=== PATIENT | female | born 1960 | race Caucasian/White ===

== ENCOUNTER 2019-04-15 17:19 | Inpatient (IN) ==
[2019-04-15] MEDS ORDERED: fentaNYL 100 MCG/2 ML VIAL IV ONE (17:40)
--- NOTE | 2019-04-15 18:09 | XRay Report ---
CLINICAL INFORMATION: fall COMPARISON: None. FINDINGS: On the axillary view, there is a probable impacted fracture of the subglenoid aspect of the lateral scapula. Mild diffuse osteoporosis noted. There is mild acromioclavicular degeneration noted. The glenohumeral joint is normal IMPRESSION: Suspect impacted nondisplaced fracture through the subglenoid region. Mild diffuse osteoporosis Mild acromioclavicular degeneration Interpreted and Authenticated by: Gerson Davila 04/15/19
--- NOTE | 2019-04-15 18:17 | Emergency Department Note ---
Fall HPI - General Chief Complaint: Fall Stated Complaint: fell hip pain and deformity Time Seen by Provider: 04/15/19 17:25 Source: patient, family Mode of arrival: EMS Limitations: no limitations - History of Present Illness HPI Narrative: 59-year-old female who slipped on the ice getting out of a pickup at [employer]. She has severe pain at her right collarbone and right hip. Her right hip is shortened. She got 100 mcg of fentanyl en route. She is feeling nauseous and refuses any more pain medicine - Related Data Home Medications Medication Instructions Recorded Confirmed Atorvastatin [Lipitor] 20 mg PO HS 04/15/19 04/15/19 Losartan Potassium 25 mg PO DAILY 04/15/19 04/15/19 Review of Systems All systems ED: reviewed and negative except as stated. Fall PMH - Past Medical History Attestation: Yes: The following information was validated with the patient. Medical history: Reports: hyperlipidemia, hypertension Surgical history ED: Reports: orthopedic, other (Knee on the left) - Social History smoking status: Current every day smoker Physical Exam Some distress secondary to pain. Normocephalic atraumatic. Conjunctive are clear sclerae white nonicteric. No nasal discharge or congestion. Oropharynx pink and moist. Heart is regular rhythm but mildly tachycardic on exam. Lungs are clear to auscultation bilaterally without wheezes rales rhonchi or respirat ory distress. Abdomen is soft nontender nondistended. Her right leg is rotated outward at the hip and shortened consistent with hip fracture. She is tender in the right groin. Her right distal one third of the collarbone is tender but she is able to move her right arm normally to manipulate a phone get things from her purse etc. she is alert oriented able answer questions appropriately. Limitations: no limitations Course Vital Signs Temperature 97.8 F 04/15/19 17:21 Pulse Rate 79 04/15/19 17:21 Respiratory Rate 16 04/15/19 17:21 Blood Pressure 112/76 04/15/19 17:21 Pulse Oximetry (%) 98 04/15/19 17:21 Temperature 97.8 F 04/15/19 17:21 Pulse Rate 65 04/15/19 18:05 Respiratory Rate 16 04/15/19 17:21 Blood Pressure 146/80 01/14/20 19:01 Pulse Oximetry (%) 98 04/15/19 18:05 Fall - Lab Data Lab results reviewed: Yes I reviewed the patient's lab results. Result diagrams: 04/15/19 18:15 04/15/19 18:14 Lab Results 04/15/19 04/15/19 Range/Units 18:14 18:15 WBC 16.1 H (4.50-11.00) K/mcL RBC 4.34 (3.59-5.38) M/mcL Hgb 13.1 (11.2-15.7) g/dL Hct 39.4 (34.1-44.9) % MCV 90.8 (80.0-100.0) fL MCH 30.2 (26.0-34.0) pg MCHC 33.2 (31.0-36.0) g/dL RDW 13.8 (11.5-14.5) % Plt Count 268 (140-440) K/mcL MPV 9.7 (7.4-10.4) fL Gran % 70.7 (38.0-78.0) % Lymph % (Auto) 22.0 (15.5-49.0) % Hays % (Auto) 5.8 (1.0-12.0) % Eos % (Auto) 1.1 (0.0-7.0) % Baso % (Auto) 0.4 (0.0-2.0) % Gran # 11.37 H (1.80-8.00) K/mcL Lymph # (Auto) 3.55 (1.50-4.80) K/mcL [place] # (Auto) 0.94 H (0.10-0.90) K/mcL Eos # (Auto) 0.17 (0.00-0.70) K/mcL Baso # (Auto) 0.07 (0.00-0.30) K/mcL Sodium 137 (133-145) mmol/L Potassium 3.4 (3.3-5.1) mmol/L Chloride 101 (96-108) mmol/L Carbon Dioxide 20 L (22-30) mmol/L Anion Gap 16.0 (8-16) BUN 11 (8-23) mg/dl Creatinine 0.6 (0.6-1.1) mg/dl GFR Calculation 98 Glucose 146 H (70-105) mg/dL Calcium 9.4 (8.6-10.4) mg/dl Total Bilirubin 0.4 (0.0-1.0) mg/dL AST 13 (0-37) U/l ALT 10 (0-40) U/l Alkaline Phosphatase 88 (39-117) U/L Total Protein 6.5 (5.9-8.4) gm/dL Albumin 4.0 (3.2-5.2) gm/dL Globulin 2.5 (2.2-3.7) gm/dL Albumin/Globulin Ratio 1.6 (1.0-2.3) - Radiology Data Radiology results reviewed: Yes I reviewed the patient's radiology results. X-ray of the right shoulder does not show a fracture dislocation . X-ray of the right hip shows a displaced intertrochanteric femur fracture Chest x-ray is read as normal - EKG Data EKG attestation: Yes I reviewed and interpreted this EKG., Yes There are no EKG findings of acute coronary syndrome, Yes This EKG will be read by cementing machine operator Disposition Pt seen by COMMUNICATIONS AGENT/PA only: No Clinical Impression: Femur fracture, right Qualifiers: Encounter type: initial encounter Femur location: intertrochanteric Fracture type: closed Fracture alignment: displaced Qualified Code(s): S72.141A - Displaced intertrochanteric fracture of right femur, initial encounter for closed fracture Right shoulder injury Qualifiers: Encounter type: initial encounter Qualified Code(s): S49.91XA - Unspecified injury of right shoulder and upper arm, initial encounter Summary: Patient is given additional dose of Zofran for nausea here. Discussed results with patient. Will call orthopedics after discussion with charge nurse Discussed case with Dr. Chandler the orthopedist application integration engineer. He came in to see the patient and plans on surgery in the morning. Patient was discussed with Dr. Aquino, hospitalist. He will admit the patient Patient changed her mind about pain medicine and we ended up giving her 100 mcg more of fentanyl. She continued to have nausea so we gave her another round of Zofran. This did not hold off for pain or nausea so we gave her Compazine 10 mg along with Robaxin and Toradol. Her pain continued to be difficult to control so we gave her Dilaudid Disposition: Xfer As Inpt ([facility]) Condition: Fair Referrals: Karol Pedro ARNP [Primary Care Provider] -
--- NOTE | 2019-04-15 18:17 | XRay Report ---
CLINICAL INFORMATION: Trauma COMPARISON: None. FINDINGS: Heart size, mediastinum and pulmonary vessels are normal. Lungs are clear. No effusions. IMPRESSION: Negative Interpreted and Authenticated by: Gerson Davila 04/15/19
--- NOTE | 2019-04-15 18:18 | XRay Report ---
CLINICAL INFORMATION: fall COMPARISON: None. FINDINGS: A severely comminuted intertrochanteric fracture of the right hip is appreciated. The femoral diaphysis is displaced greater than 1 cm anteriorly and medially. There is mild impaction and angulation deformity. Moderate degenerative change seen in both SI joints. Soft tissue swelling seen of the fracture site IMPRESSION: Comminuted, angulated and displaced intertrochanteric fracture right hip Interpreted and Authenticated by: Gerson Davila 04/15/19
[2019-04-15] MEDS ORDERED: ONDANSETRON 4 MG/2 ML VIAL IV ONE (18:27)
[2019-04-15] MEDS ORDERED: METHOCARBAMOL 1,000 MG/10 ML VIAL IV ONE (18:39)
[2019-04-15] MEDS ORDERED: KETOROLAC 30 MG/ML VIAL IV ONE (18:39)
[2019-04-15] MEDS ORDERED: PROCHLORPERAZINE 10 MG/2 ML VIAL IV ONE (19:04)
[2019-04-15 19:05] LABS: Basophils # (Auto) 0.07 K/mcL (0.00-0.30); Basophils % (Auto) 0.4 % (0.0-2.0); Eosinophils # (Auto) 0.17 K/mcL (0.00-0.70); Eosinophils % (Auto) 1.1 % (0.0-7.0); Granulocytes % (Auto) 70.7 % (38.0-78.0); Hematocrit 39.4 % (34.1-44.9); Hemoglobin 13.1 g/dL (11.2-15.7); Lymphocytes # (Auto) 3.55 K/mcL (1.50-4.80); Mean Cell Volume 90.8 fL (80.0-100.0); Mean Corpuscular HGB Conc 33.2 g/dL (31.0-36.0); Mean Platelet Volume 9.7 fL (7.4-10.4); Monocytes # (Auto) 0.94 K/mcL (0.10-0.90); Monocytes % (Auto) 5.8 % (1.0-12.0); Platelet Count 268 K/mcL (140-440); RBC 4.34 M/mcL (3.59-5.38); Red Cell Distribution Width 13.8 % (11.5-14.5); WBC 16.1 K/mcL (4.50-11.00)
--- NOTE | 2019-04-15 19:15 | Internal Med History&Physical ---
Medical - H&P: [facility] Patient information: Note initiated : 04/15/19 at 7:14 pm Service Date, if different from initiated Date: [] Patient: Shira Alarcon a 59 y/o F admitted on for fell hip pain and deformity. Chief Complaint: [] Chief complaint: Fall/right hip pain History of present illness: Ms. Alarcon is a 59 year old F who presented to the ER after she slipped on black ice outside of restaurant sustaining injury to her right hip. Initial work-up was consistent with right hip fracture. Orthopedics was consulted and hospitalist service was requested for admission to facilitate operative intervention. At the time evaluation patient is alert and oriented. She is accompanied with her . She was able to answer most the question. She denies any precipitating events and attributes fall to slipping off black ice. She denies loss of consciousness, chest pain, lightheadedness or dizziness. She denies recent hospitalization. She further denies history of cardiac stents/heart failure/diabetes or kidney issues. She denies prior strokes. She endorses to 6 out of 10 pain despite opioids administered in the ER. She actively smokes and would like a nicotine patch. She denies being on blood thinners. Review of systems A 10 point review system was performed and is negative except was cussed above Medical - H&P: PMH Medical history: Hyperlipidemia Hypertension Tobacco dependence Pertinent family history: Nonsignificant Social history: Half pack a day smoker No alcoholism Works as a caregiver at the facility Medical - H&P: Meds Home Medications Medication Instructions Recorded Confirmed Type Atorvastatin [Lipitor] 20 mg PO HS 04/15/19 04/15/19 History Losartan Potassium 25 mg PO DAILY 04/15/19 04/15/19 History Medical - H&P: Exam - Constitutional Vitals: Temp Pulse Resp BP Pulse Ox 97.8 F 65 16 146/80 98 04/15/19 17:21 04/15/19 18:05 04/15/19 17:21 04/15/19 19:01 04/15/19 18:05 General appearance: moderate distress Exam: Alert oriented Head normocephalic Oral cavity dry No ear nose discharge Neck no lymphadenopathy S1-S2 regular rhythm no murmur Diminished breath sounds bases Abdomen soft nontender nondistended Right lower extremity externally rotated and shortened No sinus clubbing or joint swelling Skin no suspicious lesion Psych alert cooperative Neuro nonfocal Medical - H&P: Reslt - Labs CBC & Chem 7: 04/15/19 18:15 04/15/19 18:14 Labs: Short CBC 04/15/19 Range/Units 18:15 WBC 16.1 H (4.50-11.00) K/mcL Hgb 13.1 (11.2-15.7) g/dL Hct 39.4 (34.1-44.9) % Plt Count 268 (140-440) K/mcL Medical - H&P: A/P (1) Femur fracture, right Current visit: Yes Status: Acute * Right hip fracture-orthopedic consulted . Patient will undergo operative intervention in a.m. Keep n.p.o. after midnight * Pain management on as needed opioids/Tylenol * Preoperative risk evaluation-based on RCRI [place] heart association risk stratification patient would fall under high risk category due to surgery specific risk however patient has a good functional baseline and does not carry history of CVA/CAD/renal failure or insulin-dependent diabetes. She would be a great candidate for postoperative rehab. Risk may include intraoperative and immediate postoperative ACS/CVA, however there are no modifiable risk factors. I recommend maintaining a map greater than 70 during intraoperative phase. Furthermore surgery and anesthesia specific risks will be addressed by individual care providers. Patient understands the risk going into surgery. * History of hypertension continue ARB * Hyperlipidemia continue statin * Tobacco dependence continue current patch * Prophylaxis heparin * Full code Plan * Inpatient admission * Pain management * Keep n.p.o. after midnight * Pre-existing medical condition management as above * PT OT/nutrition support * review postop
[2019-04-15] MEDS: HYDROmorphone 2 MG/ML VIAL IV PRN ×3 (19:17→20:37)
[2019-04-15] MEDS ORDERED: DIAZEPAM 10 MG/2 ML SYRINGE IV ONE ×2 (19:19→22:40)
[2019-04-15] MEDS ORDERED: DIAZEPAM 10 MG/2 ML SYRINGE IV PRN (19:21)
[2019-04-15 19:24] LABS: ALT/SGPT 10 U/l (0-40); AST/SGOT 13 U/l (0-37); Albumin/Globulin Ratio 1.6 (1.0-2.3); Alkaline Phosphatase 88 U/L (39-117); Bilirubin,Total 0.4 mg/dL (0.0-1.0); Blood Urea Nitrogen 11 mg/dl (8-23); Calcium 9.4 mg/dl (8.6-10.4); Carbon Dioxide 20 mmol/L (22-30); Chloride 101 mmol/L (96-108); Globulin 2.5 gm/dL (2.2-3.7); Glomerular Filtration Rate 98; Glucose 146 mg/dL (70-105)
[2019-04-15] MEDS ORDERED: NICOTINE 14 MG PATCH TOPICAL ONE (21:36)
[2019-04-15] MEDS: 0.9 % SODIUM CHLORIDE 10 ML SYRINGE IV SCH (22:30)
[2019-04-15] MEDS ORDERED: BISACODYL 10 MG SUPP.RECT PR PRN (22:40)
[2019-04-15] MEDS ORDERED: ACETAMINOPHEN 650 MG/65 ML BOTTLE IV PRN (22:40)
[2019-04-15] MEDS ORDERED: ONDANSETRON 4 MG ODT TABLET SL PRN (22:40)
[2019-04-15] MEDS ORDERED: ATORVASTATIN 20 MG TABLET PO SCH (22:40)
[2019-04-15] MEDS ORDERED: POLYETHYLENE GLYCOL 3350 17 GM PACKET PO PRN (22:40)
[2019-04-15] MEDS ORDERED: 0.9 % SODIUM CHLORIDE 1,000 ML IV SCH ×2 (22:40→22:45)
[2019-04-15] MEDS ORDERED: HYDROmorphone 2 MG/ML VIAL IV PRN (22:40)
[2019-04-15] MEDS ORDERED: ONDANSETRON 4 MG/2 ML VIAL IV PRN (22:40)
[2019-04-15] MEDS ORDERED: MELATONIN 3 MG TABLET PO PRN (22:40)
[2019-04-15] MEDS ORDERED: MAGNESIUM SULFATE 2 GM/50 ML BAG IV PRN (22:40)
[2019-04-15] MEDS ORDERED: IPRATROPIUM/ALBUTEROL 3 ML AMPUL.NEB NEB PRN (22:40)
[2019-04-15] MEDS ORDERED: ACETAMINOPHEN 325 MG TABLET PO PRN (22:40)
[2019-04-15] MEDS ORDERED: SENNOSIDES/DOCUSATE SODIUM 1 TAB TABLET PO SCH (22:40)
[2019-04-15] MEDS ORDERED: POTASSIUM CHLORIDE 20 MEQ PACKET PO PRN (22:40)
[2019-04-15] MEDS ORDERED: DIAZEPAM 10 MG/2 ML SYRINGE ONE (22:50)
[2019-04-15] MEDS ORDERED: ONDANSETRON 4 MG/2 ML VIAL ONE (22:57)
[2019-04-15] MEDS: HEPARIN 5,000 UNIT/ML VIAL SQ SCH (23:15)
[2019-04-15] MEDS: DOCUSATE SODIUM 100 MG CAPSULE PO SCH (23:16)
[2019-04-16 00:22] LABS: Appearance,Urine CLEAR; Bacteria,Urine 0 /hpf (0); Bilirubin,Urine NEG (NEG); Color,Urine YELLOW; Culture Indicated,Urine NO; Glucose,Urine (UA) NEGATIVE (NEG); Ketones,Urine 80 mg/dL (NEG); Leukocyte Esterase,Urine NEG /uL (NEG); Mucus,Urine MANY /hpf (0); Nitrate,Urine NEG (NEG); Protein,Urine NEG (NEG); Specific Gravity,Urine 1.026 (1.000-1.035); Urine Blood 0.03 mg/dL (<0.03); Urine RBC 6 /hpf (0-1); Urine Squamous Epithelial Cell 1 /hpf (0-4); Urine WBC 2 /hpf (0-4); Urobilinogen,Urine NEG (NEG)
[2019-04-16] MEDS ORDERED: DIAZEPAM 10 MG/2 ML SYRINGE ONE (01:40)
[2019-04-16] MEDS: DIAZEPAM 10 MG/2 ML SYRINGE IV PRN ×3 (01:42→10:33)
[2019-04-16] MEDS: 0.9 % SODIUM CHLORIDE 10 ML SYRINGE IV SCH ×3 (05:30→22:58)
--- NOTE | 2019-04-16 07:42 | Consultation ---
DATE OF CONSULTATION: 04/15/2019 CHIEF COMPLAINT: Right hip pain. HISTORY OF PRESENT ILLNESS: The patient sustained a slip and fall on the ice today as she was heading into the [facility]. She had immediate pain and was unable to bear weight. She was transferred to the hospital emergency room here at [facility] and radiographs have demonstrated a comminuted fracture of the intertrochanteric region, right hip. She also has pain in and about the right shoulder. Radiographs did not clearly demonstrate a fracture in and about the right shoulder, but she clearly does have a comminuted intertrochanteric fracture of the right hip. PAST MEDICAL HISTORY: Hypertension, hypercholesterolemia. PAST SURGICAL HISTORY: Noncontributory, although she apparently did have a previous left knee procedure. SOCIAL HISTORY: She is a smoker. REVIEW OF SYSTEMS: She has been healthy recently and the balance of 10-point review of systems is negative. PHYSICAL EXAMINATION: GENERAL: She is awake and alert. She is in no acute distress, although does seem to have a significant amount of pain. HEENT: Head normocephalic, atraumatic. Eyes: PERRLA. Conjunctivae clear. ENT within normal limits. NECK: Supple without pain on range of motion. HEART: Regular. LUNGS: Clear. ABDOMEN: Benign. EXTREMITIES: Right lower extremity: Shortened and malrotated. She seems to be without gross neurovascular deficit. Right shoulder: She has some pain anteriorly over the mid clavicular region but no deformity, no false motion. IMAGING STUDIES: Radiographs demonstrate a comminuted fracture of the intertrochanteric right hip. IMPRESSION: Right intertrochanteric hip fracture. PLAN: We will proceed with a reduction and internal fixation. This will be done tomorrow. I have discussed risks, complications and limitations with the patient and she wished to proceed. GDWillard:serena Job ID: [id number] Doc ID: [id number] Eze Chandler MD
[2019-04-16 08:04] LABS: Hematocrit 36.8 % (34.1-44.9); Hemoglobin 11.8 g/dL (11.2-15.7); Mean Cell Volume 93.9 fL (80.0-100.0); Mean Corpuscular HGB Conc 32.1 g/dL (31.0-36.0); Mean Platelet Volume 10.2 fL (7.4-10.4); Platelet Count 237 K/mcL (140-440); RBC 3.92 M/mcL (3.59-5.38)
[2019-04-16 08:32] LABS: ALT/SGPT 10 U/l (0-40); AST/SGOT 12 U/l (0-37); Albumin 3.7 gm/dL (3.2-5.2); Albumin/Globulin Ratio 1.8 (1.0-2.3); Alkaline Phosphatase 80 U/L (39-117); Bilirubin,Direct < 0.2 mg/dL (0.0-0.3); Bilirubin,Total 0.4 mg/dL (0.0-1.0); Blood Urea Nitrogen 9 mg/dl (8-23); Calcium 8.9 mg/dl (8.6-10.4); Carbon Dioxide 22 mmol/L (22-30); Chloride 105 mmol/L (96-108); Globulin 2.1 gm/dL (2.2-3.7); Glomerular Filtration Rate 104; Glucose 109 mg/dL (70-105); Lactate Dehydrogenase 169 U/L (94-250); Phosphorous 3.8 mg/dL (2.7-4.5); Triglycerides 71 mg/dl (<150); Uric Acid 3.2 mg/dL (2.5-8.0)
[2019-04-16] MEDS ORDERED: LOSARTAN 25 MG TABLET PO SCH (09:00)
[2019-04-16] MEDS ORDERED: MULTIVIT,THER IRON,CA,FA & MIN 1 TABLET PO SCH (09:00)
[2019-04-16 09:22] LABS: Band Neutrophils % 3 % (0-10); Eosinophils % (Manual) 6 % (0-7); Hypochromasia 1+ (NONE SEEN); Lymphocytes % 17 % (15-49); Monocytes % (Manual) 4 % (1-12); Platelet Estimate NORMAL (NORMAL); RBC Morphology ABNORM (NORMAL); Segmented Neutrophils % 70 % (38-78)
--- NOTE | 2019-04-16 11:07 | Internal Med Progress Note ---
Medical - PN: Subj Patient information: Note initiated : 04/16/19 at 11:04 am Service Date, if different from initiated Date: [] Patient: Shira Alarcon a 59 y/o F admitted on 04/15/19 for fell hip pain and deformity. Chief Complaint: [] Interval history: Ms. Alarcon is a 59 year old F who presented to the ER after she slipped on black ice outside of restaurant sustaining injury to her right hip. Initial work-up was consistent with right hip fracture. Orthopedics was consulted and hospitalist service was requested for admission to facilitate operative intervention. At the time evaluation patient is alert and oriented. She is accompanied with her . She was able to answer most the question. She denies any precipitating events and attributes fall to slipping off black ice. She denies loss of consciousness, chest pain, lightheadedness or dizziness. She denies recent hospitalization. She further denies history of cardiac stents/heart failure/diabetes or kidney issues. She denies prior strokes. She endorses to 6 out of 10 pain despite opioids administered in the ER. She actively smokes and would like a nicotine patch. She denies being on blood thinners. 04/16-patient seen this morning. Await surgical intervention. No overnight events except for intermittent spasm with fracture site. Will review postop. White count 10,000. - Constitutional Vitals: Vital Signs Temp Pulse Resp BP Pulse Ox 98.8 F 70 18 167/68 97 04/16/19 07:02 04/16/19 07:25 04/16/19 07:02 04/16/19 07:02 04/16/19 07:02 Period Temp Pulse Resp BP Sys/Jaquez Pulse Ox Last 24 Hr 97.5 F-98.8 F 64-95 16-20 112-167/62-90 93-98 Intake and Output 04/15/19 04/16/19 04/16/19 21:59 05:59 13:59 Intake Total 207 Output Total 450 Balance -243 Weight 157 lb 158 lb Intake & Output: Intake & Output 04/15/19 04/16/19 04/16/19 21:59 05:59 13:59 Intake Total 207 Output Total 450 Balance -243 Weight 157 lb 158 lb Intake: IV 57 Sodium Chloride 0.9% 1,000 ml @ 57 20 mls/hr IV .Q24H MIKE Rx#: [id number] Oral 150 Output: Void Amount 450 Other: Urine Appearance Clear Uretheral (Oliveros) Clear Urine Color Light Leydi Uretheral (Oliveros) Dark Yellow Urine Odor Strong General appearance: no acute distress Exam: Alert oriented Minimal discomfort Nonlabored breathing Medical - PN: Obj Da - Labs CBC & Chem 7: 04/17/19 06:01 04/16/19 05:54 Labs: Abnormal Lab Results 04/16/19 04/16/19 04/15/19 05:54 05:54 22:11 WBC Gran # [place] # (Auto) RBC Morphology Abnorm A Hypochromasia 1+ A Carbon Dioxide Creatinine 0.5 L Glucose 109 H Total Protein 5.8 L Globulin 2.1 L Urine Ketones 80 A Urine Occult Blood 0.03 A Urine RBC 6 H Urine Mucus Many A 04/15/19 04/15/19 18:15 18:14 WBC 16.1 H Gran # 11.37 H [place] # (Auto) 0.94 H RBC Morphology Hypochromasia Carbon Dioxide 20 L Creatinine Glucose 146 H Total Protein Globulin Urine Ketones Urine Occult Blood Urine RBC Urine Mucus Meds: Medications Acetaminophen (Tylenol) 650 mg PO Q4-6HP PRN; Protocol PRN Reason: Per Pain Protocol/Fever > 101 Albuterol/Ipratropium (Duoneb) 3 ml NEB Q4HP PRN PRN Reason: Shortness Of Breath Atorvastatin Calcium (Lipitor) 20 mg PO HS [facility] Last Admin: 04/15/19 23:15 Dose: Not Given Documented by: Bisacodyl (Dulcolax) 10 mg IA Q2-3DAYS PRN PRN Reason: Constipation Diazepam (Valium) 2 mg IV Q1-2HP PRN PRN Reason: Spasms Last Admin: 04/16/19 10:33 Dose: 2 mg Documented by: Docusate Sodium (Colace) 100 mg PO BID [facility] Last Admin: 04/15/19 23:16 Dose: Not Given Documented by: Heparin Sodium (Porcine) (Heparin) 5,000 unit SQ Q12 [facility] Last Admin: 04/15/19 23:15 Dose: Not Given Documented by: Hydromorphone HCl (Dilaudid) 0 mg IV Q4HP PRN; Protocol PRN Reason: Per Pain Protocol Sodium Chloride (Sodium Chloride 0.9%) 1,000 mls @ 20 mls/hr IV .Q24H [facility] Last Infusion: 04/15/19 22:20 Dose: 0 mls/hr Documented by: Sodium Chloride (Sodium Chloride 0.9%) 1,000 mls @ 50 mls/hr IV .Q20H [facility] Stop: 04/18/19 10:39 Last Admin: 04/15/19 23:00 Dose: 50 mls/hr Documented by: Acetaminophen (Ofirmev) 650 mg in 65 mls @ 130 mls/hr IV Q6HP PRN; Protocol PRN Reason: Per Pain Protocol/Fever > 101 Magnesium Sulfate (Magnesium Sulfate) 2 gm in 50 mls @ 50 mls/hr IV UD PRN PRN Reason: MG = or < 1.7 Iron Carb/Multivit/Rhodhiss/Folic Acid (Multivitamin W/Minerals) 1 tab PO DAILY [facility] Losartan Potassium (Cozaar) 25 mg PO DAILY [facility] Melatonin (Melatonin 3mg Tablet) 3 mg PO HSP PRN PRN Reason: Insomnia Ondansetron HCl (Zofran Odt) 4 mg SL Q4-6HP PRN; Protocol PRN Reason: Nausea And Vomiting Ondansetron HCl (Zofran) 4 mg IV Q4-6HP PRN; Protocol PRN Reason: Nausea And Vomiting Last Admin: 04/15/19 22:59 Dose: 4 mg Documented by: Polyethylene Glycol (Miralax) 17 gm PO DAILYP PRN PRN Reason: Constipation Potassium Chloride (Klor-Con) 40 meq PO DAILYP PRN PRN Reason: K+ < 3.5 Senna/Docusate Sodium (Senna Plus Tablet) 1 tab PO HS [facility] Last Admin: 04/15/19 23:00 Dose: Not Given Documented by: Sodium Chloride (Saline Flush) 10 ml IV Q8 [facility] Last Admin: 04/16/19 05:30 Dose: Not Given Documented by: Medical - PN: A/P - Time Spent With Patient Total time spent is greater than 50% in coordination of care (as documented) at patient's floor/unit and/or counseling patient: 15 - 24 minutes (1) Femur fracture, right Status: Acute Assessment and plan: * Right hip fracture-operative intervention today. Continue n.p.o. * Pain management continue as needed opioids/Tylenol * Preoperative risk evaluation-based on RCRI [place] heart association risk stratification patient would fall under high risk category due to surgery specific risk however patient has a good functional baseline and does not carry history of CVA/CAD/renal failure or insulin-dependent diabetes. She would be a great candidate for postoperative rehab. Risk may include intraoperative and immediate postoperative ACS/CVA, however there are no modifiable risk factors at this time. I recommend maintaining a map greater than 70 during intraoperative phase. Furthermore surgery and anesthesia specific risks will be addressed by individual care providers. Patient understands the risk going into surgery. * History of hypertension continue ARB * Hyperlipidemia continue statin * Tobacco dependence continue current patch * Prophylaxis heparin * Full code Plan * Review postop * Continue pre-existing medical condition management as above * PT OT/nutrition support Current Visit: Yes Medical - PN: Qual - VTE Deep Vein Thrombosis/Pulmonary Embolism Present on Admission: No
[2019-04-16] MEDS ORDERED: KETAMINE 100 MG/ML ML IV ONE (13:00)
[2019-04-16] MEDS ORDERED: GLYCOPYRROLATE 0.2 MG/ML VIAL IV ONE (13:00)
[2019-04-16] MEDS ORDERED: ONDANSETRON 4 MG/2 ML VIAL IV ONE (13:00)
[2019-04-16] MEDS ORDERED: PROPOFOL 200 MG/20 ML VIAL IV ONE (13:00)
[2019-04-16] MEDS ORDERED: ceFAZolin 2 GM in DEXTROSE 5% IN WATER 50 ML IV SCH (13:00)
[2019-04-16] MEDS ORDERED: DEXAMETHASONE 10 MG/ML VIAL IV ONE (13:00)
[2019-04-16] MEDS ORDERED: fentaNYL 100 MCG/2 ML VIAL IV ONE (13:00)
[2019-04-16] MEDS ORDERED: LIDOCAINE HCL/PF 100 MG/5 ML SYRINGE IV ONE (13:00)
[2019-04-16] MEDS ORDERED: HYDROmorphone 2 MG/ML VIAL IV ONE (13:00)
[2019-04-16] MEDS: DOCUSATE SODIUM 100 MG CAPSULE PO SCH ×2 (13:15→21:00)
[2019-04-16] MEDS: HEPARIN 5,000 UNIT/ML VIAL SQ SCH (13:15)
[2019-04-16] MEDS ORDERED: BENZOCAINE/MENTHOL 1 LOZENGE PO PRN (13:35)
[2019-04-16] MEDS ORDERED: fentaNYL 100 MCG/2 ML VIAL IV PRN (13:35)
[2019-04-16] MEDS ORDERED: FLUMAZENIL 0.1 MG/ML ML IV PRN (13:35)
[2019-04-16] MEDS ORDERED: LACTATED RINGERS 250 ML IV PRN (13:35)
[2019-04-16] MEDS ORDERED: METOPROLOL TARTRATE 5 MG/5 ML VIAL IV PRN (13:35)
[2019-04-16] MEDS ORDERED: METHOCARBAMOL 1,000 MG/10 ML VIAL IV PRN (13:35)
[2019-04-16] MEDS ORDERED: IPRATROPIUM/ALBUTEROL 3 ML AMPUL.NEB NEB PRN ×2 (13:35→17:09)
[2019-04-16] MEDS ORDERED: NALOXONE HCL 0.4 MG/ML VIAL IV PRN (13:35)
[2019-04-16] MEDS ORDERED: LABETALOL 5 MG/ML ML IV PRN (13:35)
[2019-04-16] MEDS ORDERED: LACTATED RINGERS 1,000 ML IV SCH (13:45)
--- NOTE | 2019-04-16 14:12 | Brief Operative Note ---
Date of procedure: 04/16/19 Pre-op diagnosis: R intertrochanteric hip fracture Post-op diagnosis: same Procedure: ORIF gamma Grafts/Implants: Yes (gamma) Anesthesia: GETA Complications: none Surgeon: Eze Chandler Certified Medical Technician: Mireya Logan Estimated blood loss (cc): 100 Specimens Removed/Pathology: none sent Condition: stable Disposition: PACU
[2019-04-16] MEDS ORDERED: ONDANSETRON 4 MG ODT TABLET SL PRN (17:09)
[2019-04-16] MEDS ORDERED: HYDROmorphone 2 MG/ML VIAL IV PRN (17:09)
[2019-04-16] MEDS ORDERED: ACETAMINOPHEN 325 MG TABLET PO PRN (17:09)
[2019-04-16] MEDS ORDERED: BISACODYL 10 MG SUPP.RECT PR PRN (17:09)
[2019-04-16] MEDS ORDERED: ONDANSETRON 4 MG/2 ML VIAL IV PRN (17:09)
[2019-04-16] MEDS ORDERED: MAGNESIUM SULFATE 2 GM/50 ML BAG IV PRN (17:09)
[2019-04-16] MEDS ORDERED: POLYETHYLENE GLYCOL 3350 17 GM PACKET PO PRN (17:09)
[2019-04-16] MEDS ORDERED: POTASSIUM CHLORIDE 20 MEQ PACKET PO PRN (17:09)
[2019-04-16] MEDS ORDERED: 0.9 % SODIUM CHLORIDE 1,000 ML IV SCH (17:09)
[2019-04-16] MEDS ORDERED: DIAZEPAM 10 MG/2 ML SYRINGE IV PRN (17:09)
[2019-04-16] MEDS: 0.9 % SODIUM CHLORIDE 1,000 ML IV SCH (18:15)
--- NOTE | 2019-04-16 18:35 | XRay Report ---
CLINICAL INFORMATION: Comminuted intertrochanteric fracture right hip COMPARISON: None. FINDINGS: Multiple digital images from the OR show comminuted intertrochanteric /subtrochanteric fracture to be reduced anatomic alignment and transfixed by gamma nail. IMPRESSION: ORIF intertrochanteric fracture anatomic alignment Interpreted and Authenticated by: Gerson Davila 04/16/19
[2019-04-16] MEDS: ceFAZolin 1 GM VIAL IV SCH (20:59)
[2019-04-16] MEDS ORDERED: HEPARIN 5,000 UNIT/ML VIAL SQ SCH (21:00)
[2019-04-16] MEDS: SENNOSIDES/DOCUSATE SODIUM 1 TAB TABLET PO SCH (21:00)
[2019-04-16] MEDS: ATORVASTATIN 20 MG TABLET PO SCH (21:00)
[2019-04-16] MEDS: MELATONIN 3 MG TABLET PO PRN (23:00)
[2019-04-17] MEDS: 0.9 % SODIUM CHLORIDE 10 ML SYRINGE IV SCH ×3 (05:32→21:15)
[2019-04-17] MEDS: ceFAZolin 1 GM VIAL IV SCH (05:32)
--- NOTE | 2019-04-17 07:23 | Orthopedic Progress Note ---
Subjective Patient information: Note initiated : 04/17/19 at 7:21 am Service Date, if different from initiated Date: [] Patient: Shira Alarcon 59 y/o F admitted on 04/15/19 for fell hip pain and deformity. Chief Complaint: [S/P ORIF OF RIGHT HIP FX USING INTRAMEDULLARY NAIL] Patient is doing well and her pain is well controlled. She denies any new onset chest pain, SOA, or calf tenderness. Principal diagnosis: right intertrochanteric hip fx Objective Vital signs: Vital Signs Temp Pulse Resp BP Pulse Ox 04/17/19 03:51 98.5 F 67 16 140/68 95 04/16/19 23:07 98.3 F 63 18 144/68 95 04/16/19 19:07 59 L 122/66 92 04/16/19 18:52 58 L 122/64 92 04/16/19 18:37 60 126/70 93 04/16/19 18:22 70 134/78 92 04/16/19 18:07 65 130/71 92 04/16/19 17:52 66 126/77 91 04/16/19 17:37 84 127/77 92 04/16/19 17:22 62 122/66 97 04/16/19 17:07 65 119/70 96 04/16/19 16:52 70 124/75 96 04/16/19 16:37 63 136/66 94 04/16/19 16:22 66 134/73 94 04/16/19 16:00 62 152/96 96 04/16/19 15:48 98.0 F 86 12 160/81 97 04/16/19 15:35 74 11 L 160/85 96 04/16/19 15:20 84 11 L 171/70 96 04/16/19 15:05 88 10 L 152/88 97 04/16/19 15:00 90 10 L 116/78 96 04/16/19 14:55 88 9 L 102/69 98 04/16/19 14:52 97.3 F 87 10 L 109/63 96 04/16/19 11:56 99.4 F H 71 16 171/82 97 04/16/19 07:25 70 Intake and Output 04/16/19 04/17/19 04/17/19 21:59 05:59 13:59 Intake Total 1150 670 Output Total 700 625 Balance 450 45 Intake: Oral 0 670 IV - Manual Only 1150 Output: Urine Catheter Amount 650 625 Estimated Blood Loss 50 Other: Urine Appearance Clear Clear Urine Color Pale Dark Yellow Urine Odor Strong Weight 161 lb 3.2 oz Intake & Output: Intake & Output 04/16/19 04/17/19 04/17/19 21:59 05:59 13:59 Intake Total 1150 670 Output Total 700 625 Balance 450 45 Weight 161 lb 3.2 oz Intake: Oral 0 670 IV - Manual Only 1150 Output: Urine Catheter Amount 650 625 Estimated Blood Loss 50 Other: Urine Appearance Clear Clear Urine Color Pale Dark Yellow Urine Odor Strong Incision: Yes healing, Yes clean and dry Incision clean and dry: Yes Dressing: Yes clean, Yes dry, Yes intact Weight bearing status: non Neurological exam IM: Yes alert, Yes oriented X3, Yes motor sensory intact, Yes neurovascular intact Extremities exam IM: Yes calf tenderness (negative), Yes tenderness (right lateral hip), Yes Nayla's sign (negative bilaterally), Yes Foot pink and warm, Yes neurovascular intact - Labs CBC & BMP: 04/16/19 05:54 04/16/19 05:54 Labs: 04/17/19 04/16/19 04/15/19 06:01 05:54 18:15 Hgb Pending 11.8 13.1 Hct Pending 36.8 39.4 Assessment and Plan (1) Femur fracture, right PT TODAY. TTWB ON RLE. LIKELY DISCHARGE TO HOME TOMORROW. SILVER DRESSING PRIOR TO DISCHARGE. Status: Acute Qualifiers: Encounter type: initial encounter Femur location: intertrochanteric Fracture type: closed Fracture alignment: displaced Qualified Code(s): S72.141A - Displaced intertrochanteric fracture of right femur, initial encounter for closed fracture
--- NOTE | 2019-04-17 07:27 | Operative Note ---
DATE OF OPERATION: 04/16/2019 PREOPERATIVE DIAGNOSIS: Comminuted intertrochanteric right hip fracture. POSTOPERATIVE DIAGNOSIS: Comminuted intertrochanteric right hip fracture. OPERATION PROPOSED: Open reduction and internal fixation, right hip fracture. OPERATION PERFORMED: Open reduction and internal fixation, right hip fracture. OPERATING SURGEON: Andriy Chandler M.D. DOORKEEPER: Mireya Logan PA-C. This provider's expertise and technical skill were required throughout the case. The ALICIA assisted with preoperative coordination, intraoperative retraction, wound closure, dressing and splint application, as well as postoperative documentation and care coordination. INDICATIONS: This is a 59-year-old lady who has slipped on the ice. She had a comminuted intertrochanteric hip fracture in need of operative stabilization. OPERATION IN DETAIL: Informed consent was obtained. The patient was taken to the operating where she was provided with appropriate anesthetic and prophylactic antibiotics. She was positioned on the fracture table in the best possible reduction attained. Her hip was prepped sterilely. I entered the tip of the trochanter and advanced a 3.2 mm guidewire to the level of the fracture. I then made a 3 to 4 cm incision laterally at about the position where the hip bolt would be applied. I opened the fracture and placed a single-footed turkey claw around the fracture. This reduction forceps was tightened and this affected an excellent reduction. I then advanced the guidewire across the fracture. An opening reamer was utilized. I passed a ball tip guidewire. Sequential reaming was performed and I passed a 10 x 380 mm gamma nail. A guidewire was placed across the fracture up into the femoral head and neck, low on the calcar. This was locked to the mike. Distal interlocking screws were placed. The wounds were irrigated thoroughly and closed with a 0 Vicryl in the fascia, 2-0 inverted deep dermal, and trish. The procedure was tolerated well. No complications with this procedure. Estimated blood loss was 150 mL. GDWillard:serena Job ID: [id number] Doc ID: [id number] Eze Chandler MD
--- NOTE | 2019-04-17 07:29 | Discharge Summary ---
Providers - Providers Patient information: Note initiated : 04/17/19 at 7:26 am Service Date, if different from initiated Date: [] Patient: Shira Alarcon 59 y/o F admitted on 04/15/19 for fell hip pain and deformity. Chief Complaint: [S/P ORIF OF RIGHT HIP FX USING INTRAMEDULLARY NAIL] PATIENT IS DOING WELL AND HAS NO PARTICULAR COMPLAINTS TODAY. Discharge date: 04/18/19 Attending physician: Eze Chandler Hospitalization Hospital Course: POSTOPERATIVELY, THE PATIENT WAS RETURNED TO THE [facility]. SHE WAS PROVIDED ROUTINE PAIN MANAGEMENT AND MAINTAINED ON PROPHYLACTIC ANTIBIOTICS. AT THE TIME OF DISCHARGE, SHE IS DOING WELL AND TOLERATING ALL MEDICATIONS WELL. SHE IS DISCHARGED TO FOLLOW-UP WITH ME IN 2 WEEKS. SHE WILL CALL WITH ANY QUESTIONS OR CONCERNS WHATSOEVER. Discharge diagnosis: RIGHT INTERTROCHANTERIC HIP FX Reason for admission: THE PATIENT WAS ADMITTED FOR OPERATIVE TREATMENT OF A RIGHT HIP FX Procedures: THE PATIENT WAS TAKEN TO THE OPERATING ROOM ON THE DATE OF ADMISSION WHERE SHE UNDERWENT AN ORIF OF THE RIGHT HIP FX USING GAMMA NAIL. THE PROCEDURE WAS TOLERATED WELL WITH NO COMPLICATIONS. Complications: NONE Exam - Exam Incision healing: Yes Incision draining: No Incision red: No Incision swollen: No Incision inflamed: No Clean and dry: Yes Weight bearing status: none (TTWB ON RLE) Ortho Discharge Plan - General - Patient Instructions Diet: Regular Diet Activity: other (TOE-TOUCH WEIGHT BEARING ON RIGHT LOWER EXTREMITY) Dressing Care: May shower in 2 days, Aquacel Ag - leave on for 5 days - Problem Maintenance (1) Femur fracture, right Status: Acute Qualifiers: Encounter type: initial encounter Femur location: intertrochanteric Fracture type: closed Fracture alignment: displaced Qualified Code(s): S72.141A - Displaced intertrochanteric fracture of right femur, initial encounter for closed fracture - Follow Up Plan Follow Up Appointments: Karol Pedro ARNP [Primary Care Provider] - Mireya Logan PA-C [Physician C++ Professor] - Disposition: Home, Self-Care Prognosis: Good Rehab Potential: Good I certify that the patient requires SNF services: No Overall status at discharge: patient is progressing back to baseline - Orders For Discharge Prescriptions: Aspirin 81 mg PO BID 30 Days #60 tab.chew Prescription Printed Methocarbamol [Robaxin-750] 750 mg PO Q8HP PRN #40 tab PRN Reason: Muscle Spasm Prescription Printed traMADol [Ultram] 50 mg PO Q4-6HP PRN #60 tab PRN Reason: Pain Prescription Printed Pending Studies Resuscitation Status Full Code Diet Regular Diet Start SunApr 16 170 Atorvastatin Calcium (Lipitor) 20 mg PO HS [facility] Last Admin: 04/16/19 21:00 Dose: 20 mg Documented by: YADIEL Docusate Sodium (Colace) 100 mg PO BID [facility] Last Admin: 04/16/19 21:00 Dose: 100 mg Documented by: YADIEL Sodium Chloride (Sodium Chloride 0.9%) 1,000 mls @ 50 mls/hr IV .Q20H [facility] Stop: 04/18/19 10:39 Last Admin: 04/16/19 18:15 Dose: 50 mls/hr Documented by: YADIEL Melatonin (Melatonin 3mg Tablet) 3 mg PO HSP PRN PRN Reason: Insomnia Last Admin: 04/16/19 23:00 Dose: 3 mg Documented by: YADIEL Ondansetron HCl (Zofran) 4 mg IV Q4-6HP PRN; Protocol PRN Reason: Nausea And Vomiting Last Admin: 04/16/19 17:51 Dose: 4 mg Documented by: FRANCISCO Senna/Docusate Sodium (Senna Plus Tablet) 1 tab PO HS [facility] Last Admin: 04/16/19 21:00 Dose: 1 tab Documented by: YADIEL Sodium Chloride (Saline Flush) 10 ml IV Q8 [facility] Last Admin: 04/17/19 05:32 Dose: Not Given Documented by: Admin: 04/16/19 22:58 Dose: Not Given Documented by: YADIEL Shift Summary 04/17/19 05:13 Shift Summary by Shital Siddiqi Pt slept most of the night. Has been moved some in bed, mostly she's been changing the elevation of the head & foot of the bed. salazar draining clear, yellow urine. Pt returned from surgery around 1600 last night, and has not been out of bed yet. She is to be non-wt bearing to the right leg. Is aware that she will be getting up today w/PT. Initialized on 04/17/19 05:13 - END OF NOTE
[2019-04-17 08:15] LABS: Hematocrit 31.7 % (34.1-44.9); Hemoglobin 10.1 g/dL (11.2-15.7); Mean Corpuscular HGB Conc 31.9 g/dL (31.0-36.0); Mean Platelet Volume 10.7 fL (7.4-10.4); Platelet Count 212 K/mcL (140-440); RBC 3.41 M/mcL (3.59-5.38); WBC 10.7 K/mcL (4.50-11.00)
--- NOTE | 2019-04-17 08:27 | Internal Med Progress Note ---
Medical - PN: Subj Patient information: Note initiated : 04/17/19 at 8:24 am Service Date, if different from initiated Date: [] Patient: Shira Alarcon a 59 y/o F admitted on 04/15/19 for fell hip pain and deformity. Chief Complaint: [] Interval history: Ms. Alarcon is a 59 year old F who presented to the ER after she slipped on black ice outside of restaurant sustaining injury to her right hip. Initial work-up was consistent with right hip fracture. Orthopedics was consulted and hospitalist service was requested for admission to facilitate operative intervention. At the time evaluation patient is alert and oriented. She is accompanied with her . She was able to answer most the question. She denies any precipitating events and attributes fall to slipping off black ice. She denies loss of consciousness, chest pain, lightheadedness or dizziness. She denies recent hospitalization. She further denies history of cardiac stents/heart failure/diabetes or kidney issues. She denies prior strokes. She endorses to 6 out of 10 pain despite opioids administered in the ER. She actively smokes and would like a nicotine patch. She denies being on blood thinners. 04/16-patient seen this morning. Await surgical intervention. No overnight events except for intermittent spasm with fracture site. Will review postop. White count 10,000. 04/17-patient doing well. No overnight events. Slept well. Postoperative pain controlled on opioids no concerns per staff. No fever chills nausea vomiting. Oliveros is draining clear urine. Able to ambulate with max assist due to severe pain. Ongoing PT OT. - Constitutional Vitals: Vital Signs Temp Pulse Resp BP Pulse Ox 98.5 F 67 16 140/68 95 04/17/19 03:51 04/17/19 03:51 04/17/19 03:51 04/17/19 03:51 04/17/19 03:51 Period Temp Pulse Resp BP Sys/Jaquez Pulse Ox Last 24 Hr 97.3 F-99.4 F 58-90 9-18 102-171/63-96 91-98 Intake and Output 04/16/19 04/17/19 04/17/19 21:59 05:59 13:59 Intake Total 1150 670 Output Total 700 625 Balance 450 45 Weight 161 lb 3.2 oz Intake & Output: Intake & Output 04/16/19 04/17/19 04/17/19 21:59 05:59 13:59 Intake Total 1150 670 Output Total 700 625 Balance 450 45 Weight 161 lb 3.2 oz Intake: Oral 0 670 IV - Manual Only 1150 Output: Urine Catheter Amount 650 625 Estimated Blood Loss 50 Other: Urine Appearance Clear Clear Urine Color Pale Dark Yellow Urine Odor Strong General appearance: no acute distress Exam: Alert oriented Nonlabored breathing No anxiety Nondistended abdomen Oliveros is draining clear urine Medical - PN: Obj Da - Labs CBC & Chem 7: 04/17/19 06:01 04/16/19 05:54 Labs: Abnormal Lab Results 04/17/19 04/16/19 04/16/19 06:01 05:54 05:54 WBC RBC 3.41 L Hgb 10.1 L Hct 31.7 L MPV 10.7 H Gran # George # (Auto) RBC Morphology Abnorm A Hypochromasia 1+ A Carbon Dioxide Creatinine 0.5 L Glucose 109 H Total Protein 5.8 L Globulin 2.1 L Urine Ketones Urine Occult Blood Urine RBC Urine Mucus 04/15/19 04/15/19 04/15/19 22:11 18:15 18:14 WBC 16.1 H RBC Hgb Hct MPV Gran # 11.37 H George # (Auto) 0.94 H RBC Morphology Hypochromasia Carbon Dioxide 20 L Creatinine Glucose 146 H Total Protein Globulin Urine Ketones 80 A Urine Occult Blood 0.03 A Urine RBC 6 H Urine Mucus Many A Meds: Medications Acetaminophen (Tylenol) 650 mg PO Q4-6HP PRN; Protocol PRN Reason: Per Pain Protocol/Fever > 101 Albuterol/Ipratropium (Duoneb) 3 ml NEB Q4HP PRN PRN Reason: Shortness Of Breath Aspirin (Aspirin) 81 mg PO DAILY [facility] Atorvastatin Calcium (Lipitor) 20 mg PO HS [facility] Last Admin: 04/16/19 21:00 Dose: 20 mg Documented by: Bisacodyl (Dulcolax) 10 mg DE Q2-3DAYS PRN PRN Reason: Constipation Diazepam (Valium) 2 mg IV Q1-2HP PRN PRN Reason: Spasms Docusate Sodium (Colace) 100 mg PO BID [facility] Last Admin: 04/16/19 21:00 Dose: 100 mg Documented by: Hydromorphone HCl (Dilaudid) 0 mg IV Q4HP PRN; Protocol PRN Reason: Per Pain Protocol Magnesium Sulfate (Magnesium Sulfate) 2 gm in 50 mls @ 50 mls/hr IV UD PRN PRN Reason: MG = or < 1.7 Sodium Chloride (Sodium Chloride 0.9%) 1,000 mls @ 50 mls/hr IV .Q20H [facility] Stop: 04/18/19 10:39 Last Admin: 04/16/19 18:15 Dose: 50 mls/hr Documented by: Acetaminophen (Ofirmev) 650 mg in 65 mls @ 130 mls/hr IV Q6HP PRN; Protocol PRN Reason: Per Pain Protocol/Fever > 101 Iron Carb/Multivit/Admire/Folic Acid (Multivitamin W/Minerals) 1 tab PO DAILY [facility] Losartan Potassium (Cozaar) 25 mg PO DAILY [facility] Melatonin (Melatonin 3mg Tablet) 3 mg PO HSP PRN PRN Reason: Insomnia Last Admin: 04/16/19 23:00 Dose: 3 mg Documented by: Ondansetron HCl (Zofran Odt) 4 mg SL Q4-6HP PRN; Protocol PRN Reason: Nausea And Vomiting Ondansetron HCl (Zofran) 4 mg IV Q4-6HP PRN; Protocol PRN Reason: Nausea And Vomiting Last Admin: 04/16/19 17:51 Dose: 4 mg Documented by: Polyethylene Glycol (Miralax) 17 gm PO DAILYP PRN PRN Reason: Constipation Potassium Chloride (Klor-Con) 40 meq PO DAILYP PRN PRN Reason: K+ < 3.5 Senna/Docusate Sodium (Senna Plus Tablet) 1 tab PO HS [facility] Last Admin: 04/16/19 21:00 Dose: 1 tab Documented by: Sodium Chloride (Saline Flush) 10 ml IV Q8 [facility] Last Admin: 04/17/19 05:32 Dose: Not Given Documented by: Tramadol HCl (Ultram) 50 mg PO Q4-6HP PRN PRN Reason: Pain Medical - PN: A/P - Time Spent With Patient Total time spent is greater than 50% in coordination of care (as documented) at patient's floor/unit and/or counseling patient: 15 - 24 minutes (1) Femur fracture, right Status: Acute Assessment and plan: * Right hip fracture-operative intervention today. Postop day 1. Managed by orthopedics. * Postoperative pain management on as needed opioids/Tylenol * History of hypertension continue ARB * Hyperlipidemia continue statin * Tobacco dependence continue current patch * Prophylaxis as per orthopedics * Full code Plan * Postop care per orthopedics * Continue pre-existing medical condition management as above * PT OT/nutrition support * Discharge planning per orthopedics Current Visit: Yes Medical - PN: Qual - VTE Deep Vein Thrombosis/Pulmonary Embolism Present on Admission: No
[2019-04-17 08:55] LABS: ALT/SGPT 12 U/l (0-40); AST/SGOT 16 U/l (0-37); Albumin 3.6 gm/dL (3.2-5.2); Albumin/Globulin Ratio 2.3 (1.0-2.3); Alkaline Phosphatase 74 U/L (39-117); Bilirubin,Direct < 0.2 mg/dL (0.0-0.3); Bilirubin,Total 0.3 mg/dL (0.0-1.0); Blood Urea Nitrogen 8 mg/dl (8-23); Calcium 8.8 mg/dl (8.6-10.4); Carbon Dioxide 25 mmol/L (22-30); Chloride 102 mmol/L (96-108); Globulin 1.6 gm/dL (2.2-3.7); Glucose 103 mg/dL (70-105); Lactate Dehydrogenase 204 U/L (94-250); Triglycerides 105 mg/dl (<150); Uric Acid 3.4 mg/dL (2.5-8.0)
[2019-04-17] MEDS ORDERED: ASPIRIN 81 MG TAB.CHEW PO SCH (09:00)
[2019-04-17 09:08] LABS: Band Neutrophils % 2 % (0-10); Hypochromasia FEW (NONE SEEN); Lymphocytes % 9 % (15-49); Monocytes % (Manual) 7 % (1-12); Platelet Estimate NORMAL (NORMAL); RBC Morphology ABNORM (NORMAL); Segmented Neutrophils % 82 % (38-78)
[2019-04-17 09:10] LABS: Glomerular Filtration Rate 94
[2019-04-17] MEDS: traMADol 50 MG TABLET PO PRN ×2 (09:13→19:51)
[2019-04-17] MEDS: ACETAMINOPHEN 650 MG/65 ML BOTTLE IV PRN ×2 (09:14→22:18)
[2019-04-17] MEDS: LOSARTAN 25 MG TABLET PO SCH (09:15)
[2019-04-17] MEDS: DOCUSATE SODIUM 100 MG CAPSULE PO SCH ×2 (09:15→21:14)
[2019-04-17] MEDS: MULTIVIT,THER IRON,CA,FA & MIN 1 TABLET PO SCH (09:15)
[2019-04-17] MEDS: 0.9 % SODIUM CHLORIDE 1,000 ML IV SCH ×2 (09:23→11:38)
[2019-04-17] MEDS: NICOTINE 14 MG PATCH TOPICAL SCH (14:54)
[2019-04-17] MEDS: ATORVASTATIN 20 MG TABLET PO SCH (21:14)
[2019-04-17] MEDS: MELATONIN 3 MG TABLET PO PRN (21:14)
[2019-04-17] MEDS: SENNOSIDES/DOCUSATE SODIUM 1 TAB TABLET PO SCH (21:15)
[2019-04-17] MEDS: ASPIRIN 81 MG TAB.CHEW PO SCH (21:15)
[2019-04-18] MEDS: traMADol 50 MG TABLET PO PRN ×2 (04:21→08:54)
[2019-04-18] MEDS: 0.9 % SODIUM CHLORIDE 10 ML SYRINGE IV SCH (05:54)
[2019-04-18] MEDS: 0.9 % SODIUM CHLORIDE 1,000 ML IV SCH ×2 (07:01→09:35)
[2019-04-18 07:23] LABS: Hemoglobin 8.9 g/dL (11.2-15.7); Mean Cell Volume 93.3 fL (80.0-100.0); Mean Corpuscular HGB Conc 31.8 g/dL (31.0-36.0); Mean Platelet Volume 10.4 fL (7.4-10.4); Platelet Count 177 K/mcL (140-440); Red Cell Distribution Width 14.1 % (11.5-14.5)
--- NOTE | 2019-04-18 07:25 | Orthopedic Progress Note ---
Subjective Patient information: Note initiated : 04/18/19 at 7:23 am Service Date, if different from initiated Date: [] Patient: Shira Alarcon 59 y/o F admitted on 04/15/19 for fell hip pain and deformity. Chief Complaint: [] Principal diagnosis: right intertrochanteric hip fx Objective Vital signs: Vital Signs Temp Pulse Resp BP Pulse Ox 04/18/19 04:00 98.0 F 66 20 134/72 96 04/18/19 00:00 98.2 F 66 16 112/61 96 04/17/19 20:00 97.1 F 88 20 121/66 94 04/17/19 16:00 98.5 F 86 18 122/66 95 04/17/19 15:08 95 04/17/19 12:00 98.2 F 86 18 136/47 94 04/17/19 08:00 98.1 F 65 18 147/68 95 Intake and Output 04/17/19 04/18/19 04/18/19 21:59 05:59 13:59 Intake Total 2880 1265 Output Total 3525 1275 Balance -645 -10 Intake: IV 1065 Sodium Chloride 0.9% 1,000 ml @ 1000 50 mls/hr IV .Q20H [facility] Rx#: [id number] Oral 2880 200 Output: Urine Catheter Amount 3525 1275 Other: Meal Dinner Percent of Meal Consumed 50% Feeding Ability Independent Urine Appearance Clear Clear Uretheral (Oliveros) Clear Urine Color Bright Yellow Bright Yellow Uretheral (Oliveros) Bright Yellow Urine Odor Normal Normal Weight 158 lb 4.8 oz Intake & Output: Intake & Output 04/17/19 04/18/19 04/18/19 21:59 05:59 13:59 Intake Total 2880 1265 Output Total 3525 1275 Balance -645 -10 Weight 158 lb 4.8 oz Intake: IV 1065 Sodium Chloride 0.9% 1,000 ml @ 1000 50 mls/hr IV .Q20H [facility] Rx#: [id number] Oral 2880 200 Output: Urine Catheter Amount 3525 1275 Other: Meal Dinner Percent of Meal Consumed 50% Feeding Ability Independent Urine Appearance Clear Clear Uretheral (Oliveros) Clear Urine Color Bright Yellow Bright Yellow Uretheral (Oliveros) Bright Yellow Urine Odor Normal Normal Incision: Yes healing, Yes clean and dry Incision clean and dry: Yes Dressing: Yes clean, Yes dry, Yes intact Weight bearing status: non Neurological exam IM: Yes oriented X3, Yes motor sensory intact, Yes neurovascular intact Extremities exam IM: Yes calf tenderness (negative bilaterally), Yes tenderness (right lateral hip), Yes Nayla's sign (negative bilaterally), Yes Foot pink and warm, Yes neurovascular intact - Labs CBC & BMP: 04/18/19 05:39 04/17/19 06:01 Labs: 04/18/19 04/17/19 04/16/19 05:39 06:01 05:54 Hgb 8.9 L 10.1 L 11.8 Hct 28.0 L 31.7 L 36.8 04/15/19 18:15 Hgb 13.1 Hct 39.4 Assessment and Plan (1) Femur fracture, right PT TODAY. TTWB ON RLE. LIKELY DISCHARGE TO HOME TOday. SILVER DRESSING PRIOR TO DISCHARGE. Status: Acute Qualifiers: Encounter type: initial encounter Femur location: intertrochanteric Fracture type: closed Fracture alignment: displaced Qualified Code(s): S72.141A - Displaced intertrochanteric fracture of right femur, initial encounter for closed fracture
[2019-04-18 07:36] LABS: ALT/SGPT 10 U/l (0-40); AST/SGOT 17 U/l (0-37); Albumin 3.2 gm/dL (3.2-5.2); Albumin/Globulin Ratio 1.7 (1.0-2.3); Alkaline Phosphatase 73 U/L (39-117); Bilirubin,Direct < 0.2 mg/dL (0.0-0.3); Bilirubin,Total 0.5 mg/dL (0.0-1.0); Blood Urea Nitrogen 7 mg/dl (8-23); Calcium 8.4 mg/dl (8.6-10.4); Carbon Dioxide 25 mmol/L (22-30); Chloride 102 mmol/L (96-108); Globulin 1.9 gm/dL (2.2-3.7); Glucose 100 mg/dL (70-105); Lactate Dehydrogenase 217 U/L (94-250); Triglycerides 119 mg/dl (<150); Uric Acid 3.1 mg/dL (2.5-8.0)
[2019-04-18 07:38] LABS: Glomerular Filtration Rate 104; Phosphorous 2.2 mg/dL (2.7-4.5)
[2019-04-18] MEDS: DOCUSATE SODIUM 100 MG CAPSULE PO SCH (08:54)
[2019-04-18] MEDS: MULTIVIT,THER IRON,CA,FA & MIN 1 TABLET PO SCH (08:54)
[2019-04-18] MEDS: ASPIRIN 81 MG TAB.CHEW PO SCH (08:55)
[2019-04-18] MEDS: LOSARTAN 25 MG TABLET PO SCH (08:55)
[2019-04-18] MEDS: NICOTINE 14 MG PATCH TOPICAL SCH (08:55)
[2019-04-18 09:27] LABS: Eosinophils % (Manual) 3 % (0-7); Lymphocytes % 24 % (15-49); Monocytes % (Manual) 6 % (1-12); Platelet Estimate NORMAL (NORMAL); RBC Morphology NORMAL (NORMAL); Segmented Neutrophils % 67 % (38-78)
--- NOTE | 2019-04-18 09:43 | Discharge Summary ---
Medical - DS: Prov Patient information: Note initiated : 04/18/19 at 9:40 am Service Date, if different from initiated Date: [] Patient: Shira Alarcon a 59 y/o F admitted on 04/15/19 for fell hip pain and deformity. Chief Complaint: [] Date of admission: 04/15/19 22:27 Discharge date: 04/18/19 Primary care physician: Karol Pedro Consults: 04/15/19 Consult to Physician [CONS] Stat Comment: Consulting Provider: Froy Fan Reason For Exam: Physician to Consult Consult to Physician [CONS] Stat Comment: Consulting Provider: Eze Chandler Reason For Exam: Physician to Consult Medical - DS: Meds - Discharge Medications Prescriptions: Aspirin 81 mg PO BID 30 Days #60 tab.chew Prescription Printed Methocarbamol [Robaxin-750] 750 mg PO Q8HP PRN #40 tab PRN Reason: Muscle Spasm Prescription Printed traMADol [Ultram] 50 mg PO Q4-6HP PRN #60 tab PRN Reason: Pain Prescription Printed Active and Home Medications: Home Medications Atorvastatin [Lipitor] 20 mg PO DAILY 04/15/19 [History Confirmed 04/16/19 Last Taken 04/15/19 08:00] Losartan Potassium 25 mg PO DAILY 04/15/19 [History Confirmed 04/16/19 Last Taken 04/15/19 08:00] Aspirin 81 mg PO BID 30 Days #60 tab.chew 04/17/19 [Rx Last Taken Unknown] Methocarbamol [Robaxin-750] 750 mg PO Q8HP PRN #40 tab 04/17/19 [Rx Last Taken Unknown] traMADol [Ultram] 50 mg PO Q4-6HP PRN #60 tab 04/17/19 [Rx Last Taken Unknown] Medical - DS: Hosp Hospital Course: Discharge diagnosis * Right hip fracture-operative intervention today. Postop day 2. Managed by orthopedics. Discharging home as per patient recommendations. Will follow-up with orthopedics as outpatient * Right shoulder fracture-evaluated by orthopedics. Nonoperative * History of hypertension continue ARB * Hyperlipidemia continue statin * Tobacco dependence recommend smoking cessation Brief hospital course Ms. Alarcon is a 59 year old F who presented to the ER after she slipped on black ice outside of restaurant sustaining injury to her right hip. Initial work-up was consistent with right hip fracture. Orthopedics was consulted and [facility] ali service was requested for admission to facilitate operative intervention. At the time evaluation patient is alert and oriented. She is accompanied with her . She was able to answer most the question. She denies any precipitating events and attributes fall to slipping off black ice. She denies loss of consciousness, chest pain, lightheadedness or dizziness. She denies recent hospitalization. She further denies history of cardiac stents/heart failure/diabetes or kidney issues. She denies prior strokes. She endorses to 6 out of 10 pain despite opioids administered in the ER. She actively smokes and would like a nicotine patch. She denies being on blood thinners. 04/16-patient seen this morning. Await surgical intervention. No overnight events except for intermittent spasm with fracture site. Will review postop. White count 10,000. 04/17-patient doing well. No overnight events. Slept well. Postoperative pain controlled on opioids no concerns per staff. No fever chills nausea vomiting. Oliveros is draining clear urine. Able to ambulate with max assist due to severe pain. Ongoing PT OT. 04/18-patient currently nonweightbearing. Discharging to home as patient adamantly refuses to go to [facility] and states that she has adequate help including caregivers and family support. She poses a high risk fall/decompensation due to inability to bear weight on the right side and right shoulder trauma. However I advised her to call our case management if she is unable to take care of herself at home for possible transfer to [facility] home for postoperative rehab and recovery. Patient will follow-up with orthopedics as outpatient in 2 weeks. Discharge diagnosis: . - Time Spent with Patient Total time spent providing and/or coordinating discharge services: Greater than 30 minutes Medical - DS: Exam - Constitutional Vitals: Vital Signs Temp Pulse Resp BP Pulse Ox 04/18/19 08:00 98.4 F 85 20 143/64 94 04/18/19 07:34 16 04/18/19 04:00 98.0 F 66 20 134/72 96 04/18/19 00:00 98.2 F 66 16 112/61 96 04/17/19 20:00 97.1 F 88 20 121/66 94 04/17/19 16:00 98.5 F 86 18 122/66 95 04/17/19 15:08 95 04/17/19 12:00 98.2 F 86 18 136/47 94 Intake and Output 04/17/19 04/18/19 04/18/19 21:59 05:59 13:59 Intake Total 2880 1265 Output Total 3525 1275 Balance -645 -10 Intake: IV 1065 Sodium Chloride 0.9% 1,000 ml @ 1000 50 mls/hr IV .Q20H [facility] Rx#: [id number] Oral 2880 200 Output: Urine Catheter Amount 3526 1275 Other: Meal Dinner Percent of Meal Consumed 50% Feeding Ability Independent Urine Appearance Clear Clear Uretheral (Oliveros) Clear Urine Color Bright Yellow Bright Yellow Uretheral (Oliveros) Bright Yellow Urine Odor Normal Normal Weight 158 lb 4.8 oz Medical - DS: Data Labs on day of discharge: Labs from last 24 hours 04/18/19 04/18/19 05:39 05:39 WBC 9.0 RBC 3.00 L Hgb 8.9 L Hct 28.0 L MCV 93.3 MCH 29.7 MCHC 31.8 RDW 14.1 Plt Count 177 MPV 10.4 Total Counted 100 Seg Neutrophils % 67 Band Neutrophils % Not Reportable Lymphocytes % 24 Monocytes % (Manual) 6 Eosinophils % (Manual) 3 Platelet Estimate Normal RBC Morphology Normal Sodium 137 Potassium 3.7 Chloride 102 Carbon Dioxide 25 Anion Gap 10.0 BUN 7 L Creatinine 0.5 L GFR Calculation 104 Glucose 100 Uric Acid 3.1 Calcium 8.4 L Phosphorus 2.2 L Magnesium 1.8 Total Bilirubin 0.5 Direct Bilirubin < 0.2 GGT 7 AST 17 ALT 10 Alkaline Phosphatase 73 Lactate Dehydrogenase 217 Total Protein 5.1 L Albumin 3.2 Globulin 1.9 L Albumin/Globulin Ratio 1.7 Triglycerides 119 Medical - DS: A/P - Patient/Caregiver Discharge Instructions Activity: as per physical therapy, increase activity as tolerated Diet: Regular Diet Additional Instructions: Discharge Instructions: Toe Touch weight bearing with right lower extremity. You will have home health for physical therapy. You have the Aquacel Ag dressing, leave in place for 5 days then remove. If dressing becomes soiled (turns black), remove and use gauze 4x4 dressing and antimicrobial silver ointment ([id number]) and change daily. You may shower with dressing on, pat dry after shower. You may start showering on post op day #2. To avoid constipation while taking any narcotic pain medication, take an over the counter stool softener/laxative. Use ice packs as directed, on for 20 minutes at a time, throughout the day. Ice and elevation will help with pain and swelling. If you have any questions or concerns call your orthopedic surgeon before going to the emergency room. [facility] has a supervisor home restoration service physician 24 hours per day/7 days per week and can be reached at [phone]. Call for fevers above 100.5 or pain not controlled by medication. Your prescriptions are with your discharge information. Some medications were electronically transmitted to your pharmacy of choice. Take Aspirin as prescribed to prevent blood clots (see medication list). Prescriptions: Aspirin 81 mg PO BID 30 Days #60 tab.chew Prescription Printed Methocarbamol [Robaxin-750] 750 mg PO Q8HP PRN #40 tab PRN Reason: Muscle Spasm Prescription Printed traMADol [Ultram] 50 mg PO Q4-6HP PRN #60 tab PRN Reason: Pain Prescription Printed Other Amb Orders: Walker Location: None Selected - Problem Maintenance (1) Femur fracture, right Status: Acute Qualifiers: Encounter type: initial encounter Femur location: intertrochanteric Fracture type: closed Fracture alignment: displaced Qualified Code(s): S72.141A - Displaced intertrochanteric fracture of right femur, initial encounter for closed fracture - Follow up Plan Follow up with: Karol Pedro ARNP [Primary Care Provider] - Mireya Logan PA-C [Physician Vice President Quality Improvement] - 05/01/19 9:40 am Disposition: Home, Self-Care Care Plan Goals: This discharge packet is provided to you to help keep you informed about your care. We want to ensure you get everything you need when you go home. You will also be receiving a call from us in a few days to follow up with you and see how you are doing since your discharge. This gives us a chance to listen to any concerns you maybe experiencing since you were discharged or any additional needs you may have, as well as providing us feedback on your care experience. We strive to always provide excellent care and thank you for your feedback and for choosing [facility]. Prognosis: Good Rehab Potential: Fair I certify that the patient requires SNF services: No Overall status at discharge: patient is progressing back to baseline Medical - DS: Qual - VTE Deep Vein Thrombosis/Pulmonary Embolism Present on Admission: No
== END 2019-04-18 14:45 | disposition home or self-care (01) | DRG 482 ==
LOC: SUPCPDRO → ED 17:19 → ICU 22:27 → MEDSUR 04-16 14:04
PROVIDERS: ADMIT Internal Medicine; ATTEND Internal Medicine